=== PATIENT | male | born 1965 | race Caucasian/White ===

== ENCOUNTER 2023-01-08 07:42 | Day surgery (SDC) | payer MEDICAID ==
[~2023-01-08] VITALS: Ht 172.7 cm; Wt 84.1 kg
[2023-01-08] MEDS ORDERED: MEPERIDINE 100 MG INJ. 100 MG/ML VIAL ONE (07:45)
[2023-01-08] MEDS ORDERED: MIDAZOLAM HCL 5 MG/5 ML VIAL ONE (07:46)
[2023-01-08 09:28] VITALS: O2SAT 99
[2023-01-08 11:40] VITALS: BP_SYST 107; PULSE 52; RESP 17; TEMP 98
== END 2023-01-08 13:42 | disposition home or self-care (01) ==
LOC: SDS 07:42 → SMU 07:43 → SDS 13:42
PROVIDERS: ATTEND Internal Medicine
DX: R10.32 Left lower quadrant pain (principal); K63.5 Polyp of colon; K62.1 Rectal polyp; R19.4 Change in bowel habit; K64.8 Other hemorrhoids; I10 Essential (primary) hypertension; E78.5 Hyperlipidemia, unspecified; Z79.82 Long term (current) use of aspirin; Z79.899 Other long term (current) drug therapy
CPT/HCPCS: 45380; 45385; 88305; 99152; G0378; J2250; J2175; 45384